=== PATIENT | male | born 1970 | race Caucasian/White ===

== ENCOUNTER 2020-10-30 17:58 | Emergency (ER) | payer OTHER ==
[2020-10-30] MEDS ORDERED: Ketorolac Tromethamine 60 MG/2 ML VIAL ONE (18:35)
== END 2020-10-30 18:43 | disposition home or self-care (01) ==
LOC: BURERS 17:58
DX: M10.9 Gout, unspecified (principal); I10 Essential (primary) hypertension; E78.5 Hyperlipidemia, unspecified; Z87.891 Personal history of nicotine dependence; Z79.899 Other long term (current) drug therapy
CPT/HCPCS: 96372; 99283; J1885